=== PATIENT | male | born 1995 | race Two or more races ===

== ENCOUNTER → 2023-11-19 | Emergency (ER) | payer OTHER ==
[~2023-11-19] VITALS: Ht 160 cm; Wt 88.9 kg
[~2023-11-19] MED LIST: ZESTRIL40 M1
== END | disposition home or self-care (01) ==
LOC: ER 09:31
DX: J06.9 Acute upper respiratory infection, unspecified (principal); R53.81 Other malaise; Z20.822 Contact with and (suspected) exposure to COVID-19; I10 Essential (primary) hypertension